=== PATIENT | female | born 2000 | race Two or more races ===

== ENCOUNTER 2021-06-29 22:40 | Emergency (ER) | payer MEDICAID ==
[~2021-06-29] VITALS: Ht 167.6 cm; Wt 64.0 kg
[2021-06-29] MEDS ORDERED: ACETAMINOPHEN 325MG TABLET PO ONE (23:00)
[2021-06-29] MEDS ORDERED: ONDANSETRON 4MG ODT PO ONE (23:00)
[2021-06-29 23:24] LABS: CLARITY URINE CLEAR (CLEAR); COLOR URINE ORANGE (YELLOW); KETONES URINE NEGATIVE (NEGATIVE); LEUKOCYTE ESTERASE URINE 1+ (NEGATIVE); NITRITE URINE POSITIVE (NEGATIVE); OCCULT BLOOD URINE NEGATIVE (NEGATIVE); PH URINE 5.5 (4.5-8.0); PROTEIN URINE TRACE (NEGATIVE); SPECIFIC GRAVITY URINE 1.019 (1.005-1.030)
[2021-06-29 23:28] LABS: BASOPHILS % 0.4 % (0.0-2.0); EOSINOPHILS % 3.7 % (0.0-5.0); HEMATOCRIT. 43.5 % (36.0-48.0); LYMPHOCYTES % 25.6 % (20.0-50.0); MEAN CORPUSCULAR HEMOGLOBIN 26.3 pg (28.0-32.0); MEAN CORPUSCULAR VOLUME 81.8 fL (81.0-99.0); MONOCYTES % 10.7 % (2.0-8.0); NEUTROPHILS % 59.6 % (40.0-76.0); PLATELET 255 x1000/uL (130-400); RED BLOOD CELL COUNT 5.32 mill/uL (4.2-5.4); RED CELL DISTRIBUTION WIDTH 12.8 % (11.6-14.6)
[2021-06-29 23:36] LABS: CHLORIDE 107 mEq/L (98-107)
[2021-06-30] MEDS ORDERED: SULF1TAB48 MT (00:08)
[2021-06-30 00:15] VITALS: BP 130/80
== END 2021-06-30 00:16 | disposition home or self-care (01) ==
LOC: ER 22:40
DX: N39.0 Urinary tract infection, site not specified (principal); Z87.440 Personal history of urinary (tract) infections
CPT/HCPCS: 36415; 80053; 81003; 81025; 83690; 85025; 99283; Q0162

== ENCOUNTER 2022-05-05 20:42 | Emergency (ER) | payer MEDICAID ==
[~2022-05-05] VITALS: Ht 170.2 cm; Wt 70.0 kg
[~2022-05-05 20:42] MED LIST: SULF1TAB48 MT
[2022-05-05 20:48] VITALS: BP 109/76
[2022-05-05] MEDS ORDERED: IBUPROFEN 600MG TABLET PO ONE (23:00)
[2022-05-06] MEDS ORDERED: IBUP-2029 MT (00:59)
[2022-05-06] MEDS ORDERED: CYCL10TA21 MT (00:59)
== END 2022-05-06 01:17 | disposition home or self-care (01) ==
LOC: ER 20:42
DX: S43.101A Unspecified dislocation of right acromioclavicular joint, initial encounter (principal); S20.211A Contusion of right front wall of thorax, initial encounter; S10.93XA Contusion of unspecified part of neck, initial encounter; S50.01XA Contusion of right elbow, initial encounter; S20.229A Contusion of unspecified back wall of thorax, initial encounter; V43.52XA Car driver injured in collision with other type car in traffic accident, initial encounter; Y93.89 Activity, other specified; Y92.488 Other paved roadways as the place of occurrence of the external cause
CPT/HCPCS: 71045; 73030; 73080; 99284; A4565

== ENCOUNTER 2023-05-12 23:48 | Emergency (ER) | payer MEDICAID, MEDICARE ==
[~2023-05-12] VITALS: Ht 170.2 cm; Wt 72.5 kg
[~2023-05-12 23:48] MED LIST changes: +CYCL10TA21 MT; +IBUP-2029 MT
[2023-05-13 00:41] VITALS: O2SAT 99
[2023-05-13] MEDS ORDERED: ACETAMINOPHEN 500MG TABLET PO ONE (01:30)
[2023-05-13] MEDS ORDERED: ACETAMINOPHEN 500MG TABLET PO NR (04:00)
[2023-05-13 04:23] VITALS: BP 106/78; PULSE 86; RESP 18; TEMP 98.6
== END 2023-05-13 04:47 | disposition home or self-care (01) ==
LOC: ER 23:48
DX: J06.9 Acute upper respiratory infection, unspecified (principal); Z20.822 Contact with and (suspected) exposure to COVID-19
CPT/HCPCS: 99284; 71045; 87426; 81025; 87804 ×2; C9803